=== PATIENT | female | born 1950 | race Caucasian/White ===

== ENCOUNTER → 2016-05-11 | Outpatient (CLI) | payer OTHER, BC ==
[2016-05-11 13:49] LABS: BASO % 0.2 %; BASO ABS # 0.01 K/uL (0-0.2); COMPLETE YES; EOS % 3.7 %; HEMATOCRIT 41.4 % (37-47); LYMPH ABS # 0.92 K/uL (1.2-3.4); MEAN CELL VOLUME 86.1 fL (80-100); MEAN CORPUSCULAR HEMOGLOBIN 30.1 pg (25-34); MEAN PLATELET VOLUME 9.1 fL (7.4-10.4); MONO % 9.6 %; NEUT % 65.5 %; PLATELET COUNT 241 K/uL (130-400); RED BLOOD COUNT 4.81 M/uL (4.2-5.4); WHITE BLOOD COUNT 4.38 K/uL (4.8-10.8)
[2016-05-11 14:03] LABS: ALT/SGPT 21 U/L (12-78); BLOOD UREA NITROGEN 16 mg/dl (7-18); BUN/CREATININE RATIO 17.6 (10-20); CALCIUM 9.4 mg/dl (8.5-10.1); CARBON DIOXIDE 27 mmol/L (21-32); CHLORIDE 105 mmol/L (98-107); CHOLESTEROL 145 mg/dl (0-200); CREATININE 0.89 mg/dl (0.60-1.20); GLUCOSE 82 mg/dl (70-99); POTASSIUM 3.9 mmol/L (3.5-5.1); SODIUM 141 mmol/L (136-145); TRIGLYCERIDES 54 mg/dl (0-150); VERY LOW DENSITY LIPOPROT CALC 11 mg/dl
[2016-05-11 14:07] LABS: ALB/GLOB RATIO 1.4 (0.9-2); ALKALINE PHOSPHATASE 72 U/L (45-117); AST/SGOT 18 U/L (15-37); CHOLESTEROL/HDL RATIO 2.7; HDL CHOLESTEROL 54 mg/dl; LDL CHOLESTEROL CALCULATED 80 mg/dl
== END | disposition home or self-care (01) ==
LOC: C.LABMFLN 09:16
PROVIDERS: ATTEND Family Medicine
DX: F32.9 Major depressive disorder, single episode, unspecified (principal); E78.5 Hyperlipidemia, unspecified

== ENCOUNTER → 2017-05-03 | Outpatient (CLI) | payer OTHER ==
[2017-05-03 12:32] LABS: BASO % 0.4 %; BASO ABS # 0.02 K/uL (0-0.2); EOS ABS # 0.27 K/uL (0-0.5); HEMATOCRIT 42.6 % (37-47); IG# 0.01 K/uL (0.00-0.02); LYMPH % 24.3 %; LYMPH ABS # 1.09 K/uL (1.2-3.4); MEAN CELL VOLUME 84.2 fL (80-100); MEAN CORPUSCULAR HEMOGLOBIN 29.6 pg (25-34); MEAN CORPUSCULAR HGB CONC 35.2 g/dl (32-36); MONO % 11.2 %; NEUT % 57.9 %; NEUT ABS # 2.59 K/uL (1.4-6.5); PLATELET COUNT 266 K/uL (130-400); RED CELL DISTRIBUTION WIDTH CV 13.8 % (11.5-14.5); RED CELL DISTRIBUTION WIDTH SD 41.8 fL (36.4-46.3); WHITE BLOOD COUNT 4.48 K/uL (4.8-10.8)
[2017-05-03 13:31] LABS: ALBUMIN 3.9 gm/dl (3.4-5.0); ALT/SGPT 24 U/L (12-78); AST/SGOT 16 U/L (15-37); BLOOD UREA NITROGEN 16 mg/dl (7-18); CARBON DIOXIDE 26 mmol/L (21-32); CHOLESTEROL 127 mg/dl (0-200); CREATININE 0.97 mg/dl (0.60-1.20); GLUCOSE 93 mg/dl (70-99); POTASSIUM 4.2 mmol/L (3.5-5.1); SODIUM 138 mmol/L (136-145)
[2017-05-03 13:41] LABS: ALKALINE PHOSPHATASE 86 U/L (45-117); LDL CHOLESTEROL CALCULATED 72 mg/dl; TOTAL PROTEIN 6.9 gm/dl (6.4-8.2)
== END | disposition home or self-care (01) ==
LOC: C.LABMFLN 09:05
PROVIDERS: ATTEND Family Medicine
DX: F32.9 Major depressive disorder, single episode, unspecified (principal); E78.5 Hyperlipidemia, unspecified

== ENCOUNTER 2018-01-12 07:39 | Inpatient (IN) ==
--- NOTE | 2017-11-30 14:48 | Anesthesiology Consultation ---
Date of Service November 30, 2017 Assessment & Plan (1) Encounter for pre-operative examination: Plan: - Awaiting response from PCP (Shree) regarding abnormal CXR. Teaching & Discussion Pre-Anesthesia Teaching/Discussion Notes: Instructed NPO after midnight before surgery,except medications with 15 cc of water. Medication instructions provided according to the PAT guidelines. History Surgery Operation Date: 01/12/18 07:00 Proposed Procedures p Right Total Knee Arthroplasty - Aashish Fontana MD Height/Weight Height: 5 ft 6.5 in Weight: 92 kg Allergies Allergy/AdvReac Type Severity Reaction Status Date / Time Penicillins Allergy Mild Rash Verified 11/25/17 15:38 Sulfa (Sulfonamide Allergy Mild Rash Verified 11/25/17 15:38 Antibiotics) Medications Home Medications Medication Instructions Recorded Confirmed Last Taken aspirin 81 mg PO QAM 11/25/17 11/25/17 Unknown atorvastatin 10 mg PO QPM 11/25/17 11/25/17 Unknown bupropion HCl 150 mg PO BID 11/25/17 11/25/17 Unknown cholecalciferol (vitamin D3) 400 unit PO QAM 11/25/17 11/25/17 Unknown [Vitamin D3] ibuprofen 600 mg PO BID PRN 11/25/17 11/25/17 Unknown vitamin E 400 unit PO QAM 11/25/17 11/25/17 Unknown Past Medical History Medical History Anxiety Depression Hearing deficit USES HEARING AIDES History of kidney stones Hyperlipidemia Obesity Osteoarthritis Past Surgical History Surgical History History of colonoscopy History of dilatation and curettage History of discectomy History of tonsillectomy Past Anesthesia History No Hx of Anesthesia Complications Patient denies family history of issues with anesthesia complications. History of PONV No Motion Sickness Screening History of Motion Sickness: No Social History Smoking Status: Former smoker Smoking End Date: QUIT 1996 Hx Alcohol Use: Yes alcohol intake frequency: holidays/special occasions only Exercise / Class Metabolic Activity II 4-5 Yardwork/Stairs/Walk up hill Review of Systems Patient reports knee pain. Patient denies chest pain, shortness of breath, dyspnea on exertion, reflux, cough, wheezing, palpitations. Physical Exam Vital Signs VITALS BP 130/83 P 66 TEMP 97.8 RESP 20 SP02 98%RA Patient advised to followup with PCP regarding elevated BP. Full neck and c-spine range of motion. Short neck. Full TMJ range of motion. TMD 3 finger breaths Mallampati Score 3 Dentition: missing molars Lungs: clear throughout to auscultation Cardiac: regular rate and rhythm, no murmurs noted Spine: normal Carotid arteries: negative bruit Extremities: no edema Testing Laboratory Results 11/30/17 15:01 11/30/17 15: Blood Type A Positive 11/30/17 15: Antibody Screen NEGATIVE 11/30/17 15: PT 10.2 Seconds (9.0-12.0) 11/30/17 15: INR 1.0 (0.9-1.1) 11/30/17 15: APTT 24.2 Seconds (21.0-31.0) 11/30/17 15: Hemoglobin A1c 5.6 % (4.5-5.6) 11/30/17 15: Urine Color Yellow 11/30/17 Unknown Urine Appearance Clear (Clear) 11/30/17 Unknown Urine pH 7.0 (4.5-7.5) 11/30/17 Unknown Ur Specific [place] 1.018 (1.000-1.030) 11/30/17 Unknown Urine Protein Negative (Negative) 11/30/17 Unknown Urine Glucose (UA) Negative (Negative) 11/30/17 Unknown Urine Ketones Negative (Negative) 11/30/17 Unknown Urine Nitrite Negative (Negative) 11/30/17 Unknown Ur Leukocyte Esterase Negative (Negative) 11/30/17 Unknown 11/30/17 Unknown Urine Culture - Final Urine,Clean Catch More than three types of organisms present, all low counts mixed probable skin leon. No further identifications or sensitivities to follow. Electrocardiogram Date: 11/30/17 Findings: + NSR @ (64) and + RBBB Chest X-Ray Date: 11/30/17 Abnormal appearance to the chest including right hilar lymphadenopathy, interstitial thickening, and multiple scattered subcentimeter pulmonary nodules which are likely calcified. These findings can be seen the setting of a chronic process such as sarcoidosis. However, comparison to old studies or follow-up chest CT is recommended for further evaluation and to exclude the possibility of a neoplastic process.
--- NOTE | 2017-11-30 14:52 | PAT Medication Instructions ---
Medication Instructions Date of Service November 30, 2017 Home Medications aspirin 81 mg PO QAM atorvastatin 10 mg PO QPM bupropion HCl 150 mg PO BID cholecalciferol (vitamin D3) 400 unit PO QAM ibuprofen 600 mg PO BID PRN vitamin E 400 unit PO QAM Per surgeon's instructions ibuprofen 600 mg PO BID PRN Hold 2 weeks prior to surgery vitamin E 400 unit PO QAM Hold the morning of surgery cholecalciferol (vitamin D3) 400 unit PO QAM Take morning of surgery Take the following medication the morning of surgery with a sip of water, OTHERWISE NOTHING TO EAT OR DRINK AFTER MIDNIGHT: aspirin 81 mg PO QAM bupropion HCl 150 mg PO BID Take evening before surgery atorvastatin 10 mg PO QPM bupropion HCl 150 mg PO BID Other Notes If you have any questions please call us at [phone] or [phone] or [phone] or [phone]
--- NOTE | 2017-11-30 16:00 | XRay Report ---
XR chest Pre-admission PA/Lat HISTORY: Preop. COMPARISON: None. FINDINGS: No pneumothorax. No pleural effusions. Multiple scattered subcentimeter nodules. The majori ty of these appear to be calcified. There is right hilar lymphadenopathy. There is mild diffuse inter stitial thickening. The heart is normal in size. IMPRESSION: Abnormal appearance to the chest including right hilar lymphadenopathy, interstitial thickening, and multiple scattered subcentimeter pulmonary nodules which are likely calcified. These findings can be seen the setting of a chronic process such as sarcoidosis. However, comparison to old studies or foll ow-up chest CT is recommended for further evaluation and to exclude the possibility of a neoplastic p rocess. These findings were called/faxed to the referring physician's office following dictation. Electronically signed by: Tung Bob M.D. 11/30/2017 3:59 PM
[2017-11-30 16:17] LABS: Basophils # (auto) 0.01 K/uL (0-0.2); Basophils % (auto) 0.2 %; Eosinophils # (auto) 0.29 K/uL (0-0.5); Eosinophils % (auto) 5.7 %; Hematocrit (blood only) 41.3 % (37-47); Hemoglobin 14.4 g/dL (12.0-16.0); Lymphocytes # (auto) 1.12 K/uL (1.2-3.4); Mean Corpuscular Hgb Conc 34.9 g/dL (32-36); Mean Corpuscular Volume 85.3 fL (80-100); Mean Platelet Volume 9.4 fL (7.4-10.4); Monocytes # (auto) 0.49 K/uL (0.11-0.59); Monocytes % (auto) 9.6 %; Neutrophils # (auto) 3.17 K/uL (1.4-6.5); Neutrophils % (auto) 62.5 %; Platelet Count 245 K/uL (130-400); RDW Coefficient of Variation 13.5 % (11.5-14.5); RDW Standard Deviation 41.9 fL (36.4-46.3); Red Blood Count 4.84 M/uL (4.2-5.4); White Blood Count 5.08 K/uL (4.8-10.8)
[2017-11-30 16:22] LABS: Appearance Urine Clear (Clear); Bilirubin Urine Negative (Negative); Color Urine Yellow; Glucose Urine UA Negative (Negative); Ketones Urine Negative (Negative); Leukocyte Esterase Urine Negative (Negative); Nitrite Urine Negative (Negative); Protein Urine Negative (Negative); Specific Gravity Urine 1.018 (1.000-1.030); Urobilinogen Urine Negative (Negative)
[2017-11-30 16:24] LABS: Albumin Level 3.9 gm/dl (3.4-5.0); BUN Creatinine Ratio 19.5 (10-20); Calcium 9.6 mg/dl (8.5-10.1); Creatinine Clr Calc Pharmacy 65.1 ml/min; Est GFR (African American) 69.7; Est GFR (Non-African American) 60.1; Potassium 4.3 mmol/L (3.5-5.1)
[2017-11-30 16:25] LABS: Partial Thromboplastin Ratio 0.9; Partial Thromboplastin Time 24.2 Seconds (21.0-31.0); Prothrombin Time 10.2 Seconds (9.0-12.0)
[2017-12-01 06:02] LABS: Estimated Average Glucose 114 mg/dl
--- NOTE | 2018-01-11 16:11 | History and Physical Report ---
DATE OF ADMISSION: 01/12/2018 CHIEF COMPLAINT: Chronic right knee pain. HISTORY OF PRESENT ILLNESS: A 67-year-old female patient of Dr. Fontana'bob complaining of chronic right knee pain, longstanding, now progressively getting worse. The patient has failed conservative treatment including intraarticular injections, anti-inflammatories and bracing. The patient has increased pain with weightbearing activities and her pain does interfere with her activities of daily living. PAST MEDICAL HISTORY: Hypercholesterolemia, osteoarthritis, obesity, skin cancer. SOCIAL HISTORY: Quit smoking in 1996. She is an occasional drinker. PAST SURGICAL HISTORY: Lumbar spine surgery. FAMILY HISTORY: Noncontributory. REVIEW OF SYSTEMS: Chronic right knee pain and instability. Otherwise denies any shortness of breath, chest pain, nausea, vomiting or any other joint complaints. MEDICATIONS: Atorvastatin 10 mg daily, bupropion 150 mg twice daily, escitalopram 20 mg daily, ibuprofen 600 mg 3 times daily. ALLERGIES: SULFA AND PENICILLIN WHICH BOTH CAUSE RASHES. PHYSICAL EXAMINATION: GENERAL: Well-developed, well-nourished 67-year-old female in no acute distress. She is alert and oriented x3 and pleasant. HEENT: Normocephalic, atraumatic. Extraocular motions are intact. Pupils equal, reactive to light. HEART: Regular rate and rhythm, no murmurs. LUNGS: Clear. ABDOMEN: Soft and nontender, bowel sounds present. EXTREMITIES: Right knee varus deformity with 0-125 degrees of motion. The patient has a mild effusion and crepitation with passive range of motion, medial joint line tenderness. The patient has 4/5 strength with some discomfort. NEUROLOGIC: Neurovascularly intact in the right lower extremity. DIAGNOSES: Right knee end-stage osteoarthritis, hypercholesterolemia, osteoarthritis, obesity and history of skin cancer. PLAN: The patient was advised of her diagnosis. Indications, risks, benefits, postop course have all been reviewed. The patient wished to proceed with a right total knee arthroplasty. Necessary consent forms, preoperative testing and clearances will be obtained.
[~2018-01-12 07:39] MED LIST: ACETAMINOPHEN 500 MG TAB PO SCH; BUPIVACAINE 0.5 % 5 MG/1 ML PF 10ML VIAL ONE; FAMOTIDINE 20 MG TAB PO SCH; GABAPENTIN 300 MG PO SCH; METOCLOPRAMIDE HCL 10 MG TABLET PO SCH; ROPIVACAINE 0.5% 5 MG/ML 30 ML VIAL ONE; ROPIVACAINE 0.5% HCL/PF 150 MG, BUPIVACAINE 0.5% MPF 30 ML, EPINEPHrine 30MG/30ML (OR U... INFIL SCH; TRANEXAMIC ACID 1,000 MG **IV Intra-op IV SCH; TRANEXAMIC ACID 1,000 MG **IV Pre-op IV SCH; VANCOMYCIN HCL 1,500 MG in SODIUM CHLORIDE 0.9% 500 ML IV SCH; dexAMETHasone 4 MG TAB PO SCH
[2018-01-12] MEDS: LR 500ML BOLUS, THEN 15ML/HR IV SCH ×3 (08:04→14:17)
[2018-01-12] MEDS ORDERED: fentaNYL citrate 100 MCG/2 ML VIAL ONE (09:21)
[2018-01-12] MEDS ORDERED: MIDAZOLAM HCL 1 MG/ML 2ML VIAL ONE (09:21)
[2018-01-12] MEDS ORDERED: LIDOCAINE HCL 2% 2 ML VIAL/AMP(20MG/ML) INFIL ONE (09:21)
[2018-01-12] MEDS ORDERED: PROPOFOL IV EMULSION 10 MG/ML 20 ML VIAL IV ONE (09:21)
[2018-01-12] MEDS ORDERED: KETAMINE HCL INJ 50 MG/ML 10 ML VIAL ONE (09:22)
--- NOTE | 2018-01-12 09:29 | History & Physical Bridge Note ---
Date of Service January 12, 2018 History & Physical Bridge Note I have examined the patient, reviewed the History & Physical and in the interval since the performance of the History & Physical I have noted the following changes of clinical significance: no changes noted
[2018-01-12] MEDS ORDERED: LABETALOL HCL IV 5 MG/ML 20ML IV PRN (09:32)
[2018-01-12] MEDS ORDERED: ONDANSETRON INJ 2 MG/ML 2 ML VIAL IV PRN ×2 (09:32→14:15)
[2018-01-12] MEDS ORDERED: ATROPINE SULFATE 0.1 MG/ML 5ML SYR IV PRN (09:32)
[2018-01-12] MEDS ORDERED: MEPERIDINE HCL 25 MG/ML CARP IV PRN (09:32)
[2018-01-12] MEDS ORDERED: fentaNYL citrate 100 MCG/2 ML VIAL IV PRN (09:32)
[2018-01-12] MEDS ORDERED: HYDROmorphone INJ 1 MG/ML SYRINGE IV PRN (09:32)
[2018-01-12] MEDS ORDERED: ePHEDrine sulfate 50 MG/ML AMP IV PRN (09:32)
[2018-01-12] MEDS ORDERED: PHENYLEPHRINE 100MCG/ML 5ML SYR IV PRN (09:32)
[2018-01-12] MEDS ORDERED: ORTHO JOINT ANESTHETIC ONE (10:04)
[2018-01-12] MEDS ORDERED: POVIDONE-IODINE OP SOLN 30 ML BTL ONE (10:04)
[2018-01-12] MEDS ORDERED: BACITRACIN INJ 50,000 UNIT VIAL ONE (10:04)
--- NOTE | 2018-01-12 12:45 | Post Operative Brief Note ---
Immediate Post Op Note v1 Date of Surgery January 12, 2018 Pre & Post Diagnosis Operation Date: 01/12/18 10:50 Pre-Op Diagnosis: Right Knee Osteoarthritis Post-Op Diagnosis: Right Knee Osteoarthritis Procedure Operation Date: 01/12/18 10:50 Actual Procedures p Right Total Knee Arthroplasty(Right) - Aashish Fontana MD Surgeon Aashish Fontana MD Paint Factory Worker José Miguel FIELDS Estimated Blood Loss 5 Findings Consistent with Post-Op Diagnosis Specimens bone cuts Drains Hemovac Drain Anesthesia Type Spinal MAC Complications none Disposition Accompanied Patient To Recovery: No Disposition: Recovery Room Overlapping Procedure I was immediately available: during the entire case.
--- NOTE | 2018-01-12 13:23 | Operative Report ---
Post Operative Report Date of Surgery January 12, 2018 Pre & Post Diagnosis Operation Date: 01/12/18 10:50 Pre-Op Diagnosis: Right Knee Osteoarthritis Post-Op Diagnosis: Right Knee Osteoarthritis Procedure Operation Date: 01/12/18 10:50 Actual Procedures p Right Total Knee Arthroplasty(Right) - Aashish Fontana MD Surgeon Aashish Fontana MD Quality Control Auditor José Miguel FIELDS Estimated Blood Loss 5 Findings See Below Tricompartmental DJD varus knee grade 4 medial compartment [id number] large patellofemoral osteophytes Specimens Bone cuts Drains 2 Hemovac Anesthesia Type Spinal MAC Complications none Disposition Accompanied Patient To Recovery: No Disposition: Recovery Room Indications 67-year-old female with progressive osteoarthritis in her right knee failed conservative management. Radiographs demonstrate she has moderately advanced patellofemoral osteoarthritis advanced end-stage medial compartment osteoarthritis [id number] medial compartment with a varus knee Description of Procedure Patient taken to the operating room and anesthetized under spinal MAC regional block anesthesia. Exam under anesthesia demonstrated good range of motion varus knee crepitation medial compartment patellofemoral joint no instability. A pneumatic tourniquet was placed about the thigh of the right lower extremity. The right lower extremity was prepped and draped in usual fashion. Leg was elevated exsanguinated with an Esmarch bandage and the pneumatic was raised to 300 mm mercury. An anterior incision was made across the right knee. The skin was incised longitudinally subcutaneous flaps were elevated and an incision was made through the medial retinaculum extending up into the mid third of the quadriceps tendon and extended down to the medial tibial tubercle. Intra- articular findings demonstrated tricompartmental DJD [id number] medial compartment varus knee advanced patellofemoral DJD large osteophytes from patella. The knee was exposed by excising the infrapatellar fat pad, excising the meniscal remnants and cruciate ligaments or remnants of the ligaments. Any inflamed synovial tissue was resected. The fat pad over the anterior femur was resected for placement of the component in that area. The lateral synovial bands were release. Appropriate releases were performed to balance ligaments. The femur was exposed. The custom femoral cutting block was pinned in position. The distal femoral cutting block was applied. The distal femoral cut was made with the oscillating saw. The size 8 4-in-1 cutting block was placed. The anterior and posterior chamfer cuts were made. The knee was extended and a subperiosteal peel lateral release was performed around the patella. The patella width was measured and width was reproduced using freehand cut technique. The 32 x 8.5 millimeter symmetrical patella was used. 3 drill holes are made for the pegs. The tibia was exposed. A custom tibial cutting block was positioned and drill holes were made for the cutting guide. Cutting guide was placed and the proximal cut was made with the oscillating saw. All osteophytes were resected. The lamina satin finisher was used to assess ligamentous balance and the ligaments were balanced in extension and flexion. The tibia was reexposed and measured for a size D tibial component. This was externally rotated in line with the tibial tubercle and the fixation pins were drilled. The proximal tibia was fashioned with the drill and punch. The size 8 femoral trial was inserted. The trial MC inserts were used. The 10 mm insert gave balanced ligaments through full range of motion. The patella tracked centrally. the trials were removed. The orthomix anesthetic cocktail was injected per protocol. The knee was then copiously irrigated with pulsatile lavage antibiotic solution with bacitracin. The final components were cemented with Simplex cement. The final components were [employer] persona size 8 narrow femoral, D tibia, 10 mm MC polyethylene insert and 32 x 8.5 mm symmetrical patella. While the cement cured with the knee in full extension the Betadine soak was used per protocol. After the cement cured, the knee joint was copiously irrigated with antibiotic solution with bacitracin. 2 drains were brought out laterally and connected to a Hemovac. The quadriceps tendon and medial retinaculum were closed with interrupted [id number] #1 Vicryl sutures. The knee was taken through a full range of motion and repair was secure. The subcutaneous tissues were closed with 2-0 Vicryl sutures and skin was closed with estiven. Sterile Silverlon dressings were applied and the patient tolerated the procedure well. José Miguel FIELDS my physician assistant strength coach , assisted in soft tissue retraction instrument management leg positioning the closure and will participate in the postoperative care of the patient. I attest to the content of the Intraoperative Record and any orders documented therein. Any exceptions are noted below.
--- NOTE | 2018-01-12 13:28 | Operative Report ---
Post Operative Report Date of Surgery January 12, 2018 Pre & Post Diagnosis Operation Date: 01/12/18 10:50 Pre-Op Diagnosis: Right Knee Osteoarthritis Post-Op Diagnosis: Right Knee Osteoarthritis Procedure Operation Date: 01/12/18 10:50 Actual Procedures p Right Total Knee Arthroplasty(Right) - Aashish Fontana MD Surgeon Aashish Fontana MD Chief Informatics Officer José Miguel FIELDS Estimated Blood Loss 5 Findings See Below I attest to the content of the Intraoperative Record and any orders documented therein. Any exceptions are noted below.
--- NOTE | 2018-01-12 13:53 | XRay Report ---
XR knee RT 2V routine CLINICAL HISTORY: Surgical Post Op COMPARISON: None FINDINGS: Alignment of the total right knee arthroplasty is anatomic. There is no periprosthetic fra cture or unexpected radiopaque foreign body. Drains and skin estiven are present. IMPRESSION: Expected findings following total right knee arthroplasty. Electronically signed by: Saroj Taylor M.D. 01/12/2018 1:51 PM
--- NOTE | 2018-01-12 14:10 | Anesthesiology Progress Note ---
Date of Service January 12, 2018 Anesthesia Post Procedure Vital Signs Vital Signs: Temp Pulse Resp BP Pulse Ox 01/12/18 13:50 36.6 C 68 16 125/69 96 01/12/18 13:40 36.6 C 73 18 119/70 97 01/12/18 13:30 72 17 120/65 98 01/12/18 13:20 81 17 113/65 96 01/12/18 13:12 36.4 C L 87 16 117/64 95 01/12/18 08:14 36.5 C 69 16 157/88 H 96 Pain Intensity Right Knee: Pain Intensity: 0 Notes Mental Status: alert / awake / arousable Patient Amnestic to Procedure: Yes Nausea / Vomiting: adequately controlled Pain: adequately controlled Airway Patency, RR, SpO2: stable & adequate BP & HR: stable & adequate Hydration State: stable & adequate Neuraxial Anesthesia: was administered and sensory block is resolving Anesthetic Complications: no major complications apparent and Pt Satisfied with anesthetic care
[2018-01-12] MEDS ORDERED: MoRPHine SULFATE 2 MG/ML CARP IV PRN (14:15)
[2018-01-12] MEDS ORDERED: OXYCODONE HCL IR 5 MG TAB (IMMEDIATE RELEASE) PO PRN (14:15)
[2018-01-12] MEDS ORDERED: ALUMINUM/MAGNESIUM SUSP 30 ML UDC PO PRN (14:15)
[2018-01-12] MEDS ORDERED: MAGNESIUM HYDROXIDE SUSP 30 ML UDC PO PRN (14:15)
[2018-01-12] MEDS ORDERED: VANCOMYCIN CONSULT ACTIVE PRN (14:15)
--- NOTE | 2018-01-12 16:03 | Consultation ---
Date of Consultation January 12, 2018 Assessment & Plan (1) Post-operative state: Post op 01/12 right TKA Monitor for acute blood loss - cbc am PRP am to monitor kidney function and electrolytes DVT prophylaxis, bowel prep, pain control per primary (2) HLD (hyperlipidemia): continue home atorvastatin (3) Anxiety: Continue home bupropion (4) Sarcoidosis: Not currently under treatment History of Present Illness Reason for Consultation: post op management Attending Physician: Aashish Fontana MD History of Present Illness Ms. Jensen is post op today right TKA. She feels well, no complaints. Allergies Allergy/AdvReac Type Severity Reaction Status Date / Time Penicillins Allergy Mild Rash Verified 01/12/18 08:20 Sulfa (Sulfonamide Allergy Mild Rash Verified 01/12/18 08:20 Antibiotics) Home Medications Home Medications Medication Instructions Recorded Confirmed Type aspirin 81 mg PO QAM 11/25/17 01/12/18 History atorvastatin 10 mg PO QPM 11/25/17 01/12/18 History bupropion HCl 150 mg PO BID 11/25/17 01/12/18 History cholecalciferol (vitamin D3) 400 unit PO QAM 11/25/17 01/12/18 History [Vitamin D3] ibuprofen 600 mg PO BID PRN 11/25/17 01/12/18 History vitamin E 400 unit PO QAM 11/25/17 01/12/18 History Tylenol Extra Strength 2 caplet PO Q4 PRN 01/12/18 01/12/18 History Patient History Medical History Anxiety Depression Hearing deficit USES HEARING AIDES History of kidney stones Hyperlipidemia Obesity Osteoarthritis Surgical History History of colonoscopy History of dilatation and curettage History of discectomy History of tonsillectomy Family History Father Diabetes mellitus, type 2 Social History Current Living Situation: Alone Other Information That Helps Us Care for You: No Feels Safe at Home: Yes Safety Concerns: Feels Safe At This Time Smoking Status: Former smoker Smoking End Date: QUIT 1996 Hx Alcohol Use: Yes Alcohol Intake Frequency: holidays/special occasions only Beliefs That Will Affect Care: None Preferred Language: Moroccan Communication Ability: Effective Review of Systems All systems reviewed and negative except as outlined in HPI Physical Exam 2 Vital Signs (Past 24 Hours): Last Vital Signs Temp 36.6 C 01/12/18 15:00 Pulse 77 01/12/18 15:00 Resp 18 01/12/18 15:00 BP 134/72 01/12/18 15:00 Pulse Ox 96 01/12/18 15:00 Physical Exam: General: no distress Eyes: normal inspection, PERLL Respiratory: chest non tender, clear to auscultation, normal breath sounds, no respiratory distress, no accessory muscle use Cardiac: regular rate and rhythm, no rub or gallop, systolic murmur LLSB 2/6, no edema, no jvd GI/: active bowel sounds, no abd pain or tenderness, soft, non distended Extremities: normal range of motion, normal strength, non tender Neuro/Psych: alert and oriented x 3, normal mood and affect Skin: normal color, dry
[2018-01-12] MEDS: D5W AND 1/2NSS + 20MEQ KCL 20 MEQ/1,000 ML BAG IV SCH (16:22)
[2018-01-12] MEDS: ACETAMINOPHEN 500 MG TAB PO SCH ×2 (16:22→20:58)
[2018-01-12] MEDS: FERROUS GLUCONATE 324 MG TAB PO SCH (17:37)
[2018-01-12] MEDS ORDERED: VANCOMYCIN HCL 1,500 MG in SODIUM CHLORIDE 0.9% 500 ML IV ONE (20:00)
[2018-01-12] MEDS: DOCUSATE SODIUM 100 MG CAP PO SCH (20:54)
[2018-01-12] MEDS: SENNA 8.6 MG TAB PO SCH (20:54)
[2018-01-12] MEDS: BuPROPion XL 150 MG TABCR PO SCH (20:54)
[2018-01-12] MEDS: ASPIRIN 81 MG ECTAB PO SCH (20:54)
[2018-01-12] MEDS: ATORVASTATIN 10 MG TAB PO SCH (20:54)
[2018-01-13] MEDS: D5W AND 1/2NSS + 20MEQ KCL 20 MEQ/1,000 ML BAG IV SCH (05:53)
[2018-01-13 06:41] LABS: Hematocrit (blood only) 38.1 % (37-47); Hemoglobin 12.8 g/dL (12.0-16.0); Mean Corpuscular Hgb Conc 33.6 g/dL (32-36); Mean Corpuscular Volume 85.6 fL (80-100); Mean Platelet Volume 8.8 fL (7.4-10.4); Platelet Count 249 K/uL (130-400); RDW Coefficient of Variation 13.4 % (11.5-14.5); RDW Standard Deviation 41.8 fL (36.4-46.3); Red Blood Count 4.45 M/uL (4.2-5.4); White Blood Count 12.91 K/uL (4.8-10.8)
[2018-01-13 07:20] LABS: BUN Creatinine Ratio 20.8 (10-20); Calcium 8.7 mg/dl (8.5-10.1); Creatinine Clr Calc Pharmacy 70.9 ml/min; Est GFR (African American) 77.2; Est GFR (Non-African American) 66.6; Potassium 4.4 mmol/L (3.5-5.1)
[2018-01-13] MEDS: ASPIRIN 81 MG ECTAB PO SCH ×2 (08:24→21:22)
[2018-01-13] MEDS: MULTIVITAMIN TAB PO SCH (08:24)
[2018-01-13] MEDS: CHOLECALCIFEROL (VITAMIN D) 400 UNITS TABLET PO SCH (08:24)
[2018-01-13] MEDS: DOCUSATE SODIUM 100 MG CAP PO SCH ×2 (08:24→21:21)
[2018-01-13] MEDS: FERROUS GLUCONATE 324 MG TAB PO SCH ×3 (08:24→17:22)
[2018-01-13] MEDS: BuPROPion XL 150 MG TABCR PO SCH ×2 (08:24→21:22)
[2018-01-13] MEDS ORDERED: Nursing to Pharmacy Communication ONE (08:31)
[2018-01-13] MEDS: ACETAMINOPHEN 500 MG TAB PO SCH ×3 (08:33→21:22)
--- NOTE | 2018-01-13 08:49 | Orthopedic Progress Note ---
Date of Service January 13, 2018 Assessment & Plan (1) Right knee DJD: POD #1, Right TKA PT/ OT DVT proph- ASA D/C planning- Home w OPPT As per medicine. Subjective POD #1, Doing well, denies SOB, CP, N/V+, pain controlled well, tolerating PO intake. Physical Exam 2 Vital Signs (Past 24 Hours): Last Vital Signs Temp 36.4 C L 01/13/18 07:55 Pulse 78 01/13/18 07:55 Resp 16 01/13/18 07:55 BP 149/79 H 01/13/18 08:28 Pulse Ox 98 01/13/18 07:55 Physical Exam: Right knee dressings c/d/i, no drainage, toes and ankle mobile , no calf tenderness, A&Ox3.
--- NOTE | 2018-01-13 12:50 | Hospitalist Progress Note ---
Date of Service January 13, 2018 Assessment & Plan (1) Post-operative state: Post op 01/12 right TKA DVT prophylaxis, bowel prep, pain control per primary (2) HLD (hyperlipidemia): continue home atorvastatin (3) Anxiety: Continue home bupropion (4) Sarcoidosis: Not currently under treatment Medicine will sign off at this time. Please let us know if we can be of assistance in the future. Subjective Ms. Jensen was up to a chair at the time of my assessment. Feels well, no complaints. Review of Systems All systems reviewed & are unremarkable except as noted in HPI & below Physical Exam 2 Vital Signs (Past 24 Hours): Last Vital Signs Temp 36.8 C 01/13/18 12:00 Pulse 70 01/13/18 12:00 Resp 16 01/13/18 12:00 BP 158/82 H 01/13/18 12:00 Pulse Ox 100 01/13/18 12:00 Physical Exam: General: no distress Eyes: normal inspection, PERLL Respiratory: chest non tender, clear to auscultation, normal breath sounds, no respiratory distress, no accessory muscle use Cardiac: regular rate and rhythm, no rub or gallop, no murmur, no edema, no jvd GI/: active bowel sounds, no abd pain or tenderness, soft, non distended Extremities: normal range of motion, normal strength, non tender Neuro/Psych: alert and oriented x 3, normal mood and affect Skin: normal color, dry
[2018-01-13] MEDS: LR 500ML BOLUS, THEN 15ML/HR IV SCH ×2 (19:36→19:37)
[2018-01-13] MEDS: SENNA 8.6 MG TAB PO SCH (21:21)
[2018-01-13] MEDS: ATORVASTATIN 10 MG TAB PO SCH (21:22)
[2018-01-14] MEDS: ACETAMINOPHEN 500 MG TAB PO SCH (05:33)
[2018-01-14 07:34] LABS: BUN Creatinine Ratio 25.4 (10-20); Calcium 8.7 mg/dl (8.5-10.1); Creatinine Clr Calc Pharmacy 71.7 ml/min; Est GFR (African American) 78.3; Est GFR (Non-African American) 67.5
[2018-01-14] MEDS: DOCUSATE SODIUM 100 MG CAP PO SCH (09:19)
[2018-01-14] MEDS: FERROUS GLUCONATE 324 MG TAB PO SCH (09:19)
[2018-01-14] MEDS: ASPIRIN 81 MG ECTAB PO SCH (09:20)
[2018-01-14] MEDS: MULTIVITAMIN TAB PO SCH (09:20)
[2018-01-14] MEDS: BuPROPion XL 150 MG TABCR PO SCH (09:20)
[2018-01-14] MEDS: CHOLECALCIFEROL (VITAMIN D) 400 UNITS TABLET PO SCH (09:20)
--- NOTE | 2018-01-14 09:38 | Orthopedic Progress Note ---
Date of Service January 14, 2018 Assessment & Plan (1) Right knee DJD: POD #2, Right TKA PT/ OT DVT proph- ASA D/C planning- Home w OPPT today As per medicine. Subjective POD #2, Doing well, denies SOB, CP, N/V+, pain controlled well, tolerating PO intake. Physical Exam 2 Vital Signs (Past 24 Hours): Last Vital Signs Temp 36.6 C 01/14/18 06:38 Pulse 76 01/14/18 06:38 Resp 16 01/14/18 06:38 BP 125/82 01/14/18 06:38 Pulse Ox 97 01/14/18 06:38 Physical Exam: Right knee silverlon dressing c/d/i, no drainage, no calf tenderness, toes and ankle mobile. A&Ox3.
--- NOTE | 2018-01-26 07:22 | Discharge Summary ---
Date of Service January 26, 2018 Admission HPI Per Admitting Provider A 67-year-old female patient of Dr. Fontana's complaining of chronic right knee pain, longstanding, now progressively getting worse. The patient has failed conservative treatment including intraarticular injections, anti-inflammatories and bracing. The patient has increased pain with weightbearing activities and her pain does interfere with her activities of daily living. Admission Exam Per Admitting Provider as per admitting H&P Principal Diagnosis Right knee osteoarthritis Discharge Exam Right knee silverlon dressing c/d/i, no drainage, no calf tenderness, toes and ankle mobile. A&Ox3. Discharge Data Allergies Allergy/AdvReac Type Severity Reaction Status Date / Time Penicillins Allergy Mild Rash Verified 01/12/18 08:20 Sulfa (Sulfonamide Allergy Mild Rash Verified 01/12/18 08:20 Antibiotics) Consultations 01/07/18 16:18 Consult Hospitalist Routine 01/12/18 14:15 Consult Case Management - Discharge Planning Routine Procedures Performed Operation Date: 01/12/18 10:50 Actual Procedures p Right Total Knee Arthroplasty(Right) - Aashish Fontana MD Ordered Studies 01/12/18 05:00 US - OR guided needle placemen Routine 01/12/18 09:33 US - OR guided needle placemen Routine Hospital Course (1) Right knee DJD: Patient was admitted on the above-noted date and had the above the surgery form which they tolerated well. [facility] was consulted for postoperative medical coverage and continue to follow patient during her stay. The first postoperative day the patient was comfortable and without complaints. Vital signs are stable and she was afebrile. Dressings are clean dry and intact and toes are mobile calves are soft nontender. Patient was started on physical therapy protocol and continued on dvt prophylaxis and pain management. By the patient's second postoperative day, she continued to remain stable. Pain was controlled and she was progressing with physical therapy protocol. Nurolon dressing was remaining intact, calves are soft nontender, neurovascular is intact. Medicine service had signed off due to her remaining stable and it was felt she can be discharged home with home health services. Total Time Total Time Spent Total Time Spent (In Minutes): 1 Discharge Plan Discharge Items Patient Disposition: Home - Self-Care Reason For Visit: Right Knee Osteoarthritis Discharge Diagnosis: s/p Right TKA Discharge Goals: Improve function Activity: Per 'Additional Instructions' section Non-emergency contact: Primary Care Provider Call non-emergency contact if: your pain is not controlled, your pain is concerning for you, your temperature is above 101, your wound has increased redness and your wound has increased drainage Follow-up/Referrals: Dixie Swann MD [Primary Care Provider] - Diet: Regular Addtl Provider Instructions: ACTIVITY RECOMMENDATIONS: SELF CARE INSTRUCTIONS AFTER TOTAL KNEE REPLACEMENT A. You may need to continue a physical therapy program after discharge from the hospital. There are several options available to you. Your doctor will assist you in selecting the best one for you. 1. An out-patient facility 2 to 3 times a week for therapy or home therapy. 2. Continue working on all exercises taught to you in the hospital. Your goals should be to increase bending of your knee to 90 degrees and beyond and to fully straighten your knee. B. You may progress at your own pace from walking with a walker or crutches to a cane; then to no assistive devices. C. Make walking a part of your daily routine. Be up as much as comfortable with rest periods throughout the day. Rest with leg elevation is very important. Use the ice wrap frequently for the first 3-4 weeks. D. There are no restrictions on activities. You may ride in a car, shop, participate in sales assistants and salespersons and all social activities. E. Wear the long elastic stockings (LESLI hose) 20 hours a day for 2 weeks after surgery. They can be removed several times a day for laundering and for a bath. F. You may shower, no tub baths until cleared by your doctor. SPECIAL CARE INSTRUCTIONS: VERY IMPORTANT TO READ AND REVIEW A. There are a few signs you need to watch for after you are home. Call [facility] if you notice any of the followin. Increased severe knee pain. Some pain is expected especially when you exercise. 2. Increased swelling in your leg or knee; pain or swelling of the calf muscle in either lower leg. 3. Any fluid drainage from the incision. 4. Shortness of breath or chest pain. B. Please call [facility] at if you have any concerns or questions about your operation or recovery. The doctor or his nurse will return your call promptly. C. You must take antibiotics before dental work, bladder, bowel or other surgery. Your doctor will provide you with a permanent care to carry describing this precaution. IMPORTANT: * REMEMBER TO TAKE ASPIRIN, 81 MG, TWICE DAILY FOR 4 WEEKS UNLESS OTHERWISE DIRECTED. THIS IS YOUR BLOOD THINNER. * HIGH RISK PATIENTS MAY BE PRESCRIBED A STRONGER BLOOD THINNER. THIS WILL BE PROVIDED AT DISCHARGE. * CALL IF INCREASED PAIN, REDNESS, DRAINAGE OR FEVER GREATER THAT 101. * WEAR LESLI HOSE 20 HOURS PER DAY FOR 2 WEEKS. * YOU MAY HAVE A LARGE BAND-AID LIKE DRESSING (SILVERON). THIS WILL REMAIN ON YOUR INCISION FOR 7 DAYS, THEN CAN BE REMOVED. IF INCISION IS LEAKING THROUGH DRESSING, CALL THE OFFICE . FOLLOW UP VISIT: If appointment is not already scheduled: Please call [facility] to make a follow-up appointment for 2 weeks after your surgery at . Prescriptions: New acetaminophen [Pain Reliever] 500 mg Tablet 1,000 mg PO Q8 21 Days Qty: 126 RF: 0 aspirin [Ecotrin Low Strength] 81 mg Tablet,Delayed Release (Dr/Ec) 81 mg PO BID 30 Days Qty: 60 RF: 0 oxycodone 5 mg Tablet 5 mg PO Q4H PRN (Reason: pain) Qty: 30 RF: 0 Continue atorvastatin 10 mg Tablet 10 mg PO QPM RF: 0 cholecalciferol (vitamin D3) [Vitamin D3] 400 unit Tablet 400 unit PO QAM RF: 0 vitamin E 400 unit Capsule 400 unit PO QAM RF: 0 bupropion HCl 150 mg Tablet Extended Release 24 Hr 150 mg PO BID RF: 0 Discontinued aspirin 81 mg Tablet,Delayed Release (Dr/Ec) 81 mg PO QAM RF: 0 ibuprofen 600 mg Tablet 600 mg PO BID PRN (Reason: Pain) RF: 0 Tylenol Extra Strength 2 caplet PO Q4 PRN (Reason: Pain) RF: 0 Visit Report Forms: My [facility] [employer] [facility] Stand-Alone Forms: Opioid Pain Management Discharge Orders: Discharge Order (Routine); Ordered 01/14/18 Ordered By: Wes Lynn Admission Data Admit Date/Time: 01/12/18 13:23 Attending Provider: Aashish Fontana Admit Provider: Aashish Fontana Primary Care Provider: Dixie Swann Service: Surgical Services Other Interventions: Discharge Summary Assessment (RN) Last Done: 01/14/18 10:19 DC Date/Time DO NOT enter until pt leaves facility: 01/14/18 11:41
== END 2018-01-14 11:41 | disposition home or self-care (01) | DRG 470 ==
LOC: ASU 07:39 → 3E 13:23